=== PATIENT | female | born 1945 | race Caucasian/White ===

== ENCOUNTER → 2023-06-16 09:03 | Outpatient (BNVA) | payer MEDICARE, SELFPAY | PROVIDERS: PCP Family Medicine; Visit Provider Psychiatry & Neurology Neurology | DX: G25.2 Other specified forms of tremor (principal); F41.8 Other specified anxiety disorders | CPT/HCPCS: 99203 ==

== ENCOUNTER 2023-07-15 12:58 | Outpatient (CLI) | payer MEDICARE, SELFPAY ==
--- NOTE | 2023-07-15 13:45 | MR_ITS ---
WS: [id number] MRI HEAD WITH CONTRAST TECHNIQUE: Sagittal T1, T2 axial, T2 axial FLAIR, axial susceptibility weighted imaging, axial diffus ion weighted images, and coronal T2 images were obtained. Pre and post-T1 axial and post T1 coronal i mages. ADC and FSPGR images. CLINICAL INFORMATION: K14.8 - Other diseases of tongue COMPARISON: None. FINDINGS: No evidence of restricted diffusion to suggest acute ischemia. Ventricular system and basal cisterns are patent. Advanced small vessel changes. Moderate parenchymal volume loss. Small vessel changes in the marie. Chronic lacunar infarct RIGHT caudate. Chronic lacunar infarcts in the RIGHT frontal perive ntricular white matter and RIGHT deleon radiata. Normal vascular flow voids at the skull base. No extra-axial fluid collections. Small enhancing extra -axial lesion overlying the RIGHT anterior temporal lobe measuring 8 x 6 x 9 mm compatible with small sphenoid wing meningioma. Normal optic chiasm and pituitary infundibulum. Moderate symmetric atrophy temporal and hippocampal formations. Incidental benign partially empty sella. IMPRESSION: 1. No evidence of restricted diffusion to suggest acute ischemia. 2. Advanced small vessel changes with moderate parenchymal volume loss. 3. Chronic lacunar infarcts in the RIGHT caudate and RIGHT deleon radiata. 4. Small enhancing meningioma RIGHT middle cranial fossa measuring 8 x 6 x 9 mm. 5. Small vessel changes in the marie. Wallerian degeneration RIGHT midbrain. 6. Moderate symmetric atrophy temporal lobes and hippocampal formations.
[2023-07-15] MEDS: gadobenate dimeglumine 20 mL vial IV (13:46)
== END 2023-07-15 12:59 | disposition home or self-care (01) ==
LOC: RAD 12:58
PROVIDERS: PCP Family Medicine; Visit Provider Psychiatry & Neurology Neurology
DX: K14.8 Other diseases of tongue (principal); R25.0 Abnormal head movements; I67.89 Other cerebrovascular disease; G31.89 Other specified degenerative diseases of nervous system
CPT/HCPCS: 70553; A9577